=== PATIENT | male | born 1995 | race Caucasian/White ===

== ENCOUNTER 2022-01-07 15:27 | Emergency (ER) | payer MEDICAID ==
[~2022-01-07] VITALS: Ht 177.8 cm; Wt 73.8 kg
[2022-01-07 16:02] VITALS: BP 137/87
== END 2022-01-07 18:48 | disposition home or self-care (01) ==
LOC: ER 15:28
DX: S60.021A Contusion of right index finger without damage to nail, initial encounter (principal); S80.01XA Contusion of right knee, initial encounter; M54.59 Other low back pain; M54.2 Cervicalgia; F17.200 Nicotine dependence, unspecified, uncomplicated; V49.9XXA Car occupant (driver) (passenger) injured in unspecified traffic accident, initial encounter; Y93.89 Activity, other specified; Y92.89 Other specified places as the place of occurrence of the external cause; Y99.8 Other external cause status
CPT/HCPCS: 73130; 99283